=== PATIENT | female | born 1995 | race Caucasian/White ===

== ENCOUNTER 2024-01-25 13:47 | Observation (INO) | payer OTHER, SELFPAY ==
[2024-01-25] VITALS (8 sets, daily range): BP systolic 95–113; BP diastolic 48–83; PULSE 117–132; RESP 5–26; TEMP 36.6–37; O2SAT 98–100
--- NOTE | ~2024-01-25 | CT_ITS ---
EXAMINATION: CTA chest PE abdomen pel DATE: 01/25/2024 20:39 INDICATION: Nausea and tachycardia TECHNIQUE: Computed tomography angiography (CTA) of the chest was performed with 100 mL Omnipaque-350 intravenous contrast timed to evaluate the pulmonary arteries. Subsequent postcontrast images of the abdomen and pelvis are obtained. Coronal maximum intensity projection 3D-reconstructions were create d by the technologist. The dose-length product (DLP) was 1685.28 mGy-cm. Automated exposure control a nd iterative reconstruction technique were employed. COMPARISON: None. FINDINGS: CTA CHEST: There is fair opacification of the pulmonary arteries. There is moderate respiratory motio n. No central pulmonary embolus is identified. There appear to be patchy airspace opacities of the [place] ngs again, sensitivity is limited by respiratory motion. No pleural effusion or pneumothorax. No path ologically enlarged thoracic lymph nodes are identified. The heart size is normal. ABDOMEN/PELVIS CT: Cholecystectomy clips are noted. The liver, spleen, pancreas, and adrenal glands a re normal. Small cysts of the kidneys measure up to 3 mm. The appendix is normal. No pathologically e nlarged abdominal or pelvic lymph nodes are identified. No free intraperitoneal gas or evidence of mimi wel obstruction. There is liquid stool throughout much of the colon. There is a greater than normal n umber of fluid-filled, nondistended small bowel loops. IMPRESSION: 1. No central pulmonary embolus identified. Evaluation for pulmonary emboli is limited by fair opacif ication of the pulmonary arteries and moderate respiratory motion. 2. Minimal airspace opacities of the lungs which could reflect atelectasis versus mild pneumonia. 3. CT findings suggestive of enterocolitis. Reviewed, dictated and finalized at location F. TS REPORTER IMPRESSION: 1. No central pulmonary embolus identified. Evaluation for pulmonary emboli is limited by fair opacification of the pulmonary arteries and moderate respirator y motion. 2. Minimal airspace opacities of the lungs which could reflect atelectasis vers us mild pneumonia. 3. CT findings suggestive of enterocolitis.
--- NOTE | 2024-01-25 16:19 | ED.GENADULT ---
HPI - General Adult General Chief complaint: Nausea/Vomiting/Diarrhea <Aristides Guzman MD - Last Filed: 01/26/24 07:02> Stated complaint: vomiting <Aristides Guzman MD - Last Filed: 01/26/24 07:02> Time Seen by Provider: 01/25/24 15:58 <Aristides Guzman MD - Last Filed: 01/26/24 07:02> History of Present Illness HPI narrative: 28-year-old female present to the emergency department for evaluation of nausea vomiting and diarrhea. Patient reports she had onset of symptoms approximately 4:00 a.m. this morning. Patient had multiple rounds of nausea vomiting and diarrhea. Patient does complain of diffuse abdominal soreness after the vomiting. Patient denies any abdominal pain, at time of examination Patient does have prior history cholecystectomy <Aristides Guzman MD - Last Filed: 01/26/24 07:02> Related Data Home medications: Home Medications Medication Instructions Recorded Confirmed Lactaid 1 tablet PO TIDWM PRN dairy 01/26/24 01/26/24 sertraline 50 mg tablet 50 mg PO DAILY 01/26/24 01/26/24 topiramate 100 mg tablet 100 mg PO HS 01/26/24 01/26/24 ubrogepant 100 mg tablet (Ubrelvy) 100 mg PO BID PRN Migraine Headache 01/26/24 01/26/24 <Aristides Guzman MD - Last Filed: 01/26/24 07:02> Allergies/adverse reactions: Allergies Allergy/AdvReac Type Severity Reaction Status Date / Time Milk Containing Products Allergy Vomiting Verified 01/26/24 00:35 (Dairy) <Aristides Guzman MD - Last Filed: 01/26/24 07:02> Review of Systems Review of Systems: All systems reviewed & are unremarkable except as noted in HPI and below <Aristides Guzman MD - Last Filed: 01/26/24 07:02> PMFSH Past Medical History Medical History: Medical History (Updated 01/26/24 @ 05:10 by Manasa Riddle DO) Depression Migraines Morbid obesity with BMI of 40.0-44.9, adult <Aristides Guzman MD - Last Filed: 01/26/24 07:02> Surgical History Surgical History: Surgical History (Updated 01/26/24 @ 05:03 by Manasa Riddle DO) Hx of cholecystectomy (2017) <Aristides Guzman MD - Last Filed: 01/26/24 07:02> Family History Family History: Family History Mother Hypertension Morbid obesity Sudden cardiac , Onset Age: 50 She had been having heartburn symptoms and in her sleep Grandparent Diabetes mellitus Grandparent Diabetes mellitus Grandparent Colon cancer Grandparent Cerebrovascular accident <Aristides Guzman MD - Last Filed: 01/26/24 07:02> Social History Social History: Social History (Updated 01/26/24 @ 05:06 by Manasa Riddle DO) Social History: The patient lives with a roommate. She does not have any kids and is single. She is a lifelong nonsmoker. She rarely drinks alcohol and only in moderation. She denies illicit substance use. Code status: Full code Surrogate decision maker: Ed (father) Smoking status: Never smoker Alcohol intake: never Substance use: never Do You Feel Safe in your Home?: Yes Lack of Transportation: No Lack of Food: Never True Current Housing: I Have Housing Concerned About Future Housing: No Difficulty Paying Gas/Electric Bills: No Difficulty Paying for Meds: No Currently Unemployed: No Education: Bachelor's Degree Difficulty w/ Childcare or Family Care: No Spiritual care concerns: No <Aristides Guzman MD - Last Filed: 01/26/24 07:02> Exam Narrative: APPEARANCE: Well appearing, no pain, no distress, well-nourished. HEAD: normocephalic, atraumatic. EYES: PERRLA/EOMI, conjunctivae clear. NOSE: Normal no drainage EARS:TMS clear with good light reflex. THROAT: Pharynx clear, no exudate. NECK: Supple. No adenopathy, no masses. RESPIRATORY: Airway patent, respirations nonlabored. Clear to auscultation bilaterally, no rales, rhonchi, wheezing. CARDIOVASCULAR: Regular rate and rhythm without murmurs rubs or
[2024-01-25] MEDS: SODIUM CHLORIDE 0.9% IV 1,000 ML 999 ML IV CONT ×4 (16:33→22:47)
[2024-01-25] MEDS: ONDANSETRON INJ 4 MG/2 ML VIAL IV PUSH (16:34)
[2024-01-25 16:48] LABS: Basophils Percent Auto 0.1 % (0.2-1.2); Hematocrit 41.9 % (37.0-47.0); Hemoglobin 13.8 g/dL (12.0-15.0); Immature Granulocyte Absolute 0.06 K/mm3 (0.00-0.031); Immature Granulocyte Percent A 0.4 % (0-0.5); Lymphocytes Absolute Auto 0.61 K/mm3 (0.9-3.2); Mean Corpuscular HGB Conc 32.9 g/dl (32-36); Mean Corpuscular Hemoglobin 29.9 pg (26-34); Mean Corpuscular Volume 90.7 fl (80-100); Mean Platelet Volume 10.3 fl (7.4-10.4); Monocytes Absolute Auto 0.4 K/mm3 (0.1-0.6); Monocytes Percent Auto 2.8 % (2.6-8.5); Neutrophils Percent Auto 92.7 % (45.5-73.1); Platelet Count Result 317 k/mm3 (150-375); Red Blood Count 4.62 M/mm3 (4.2-5.4); Red Cell Distribution Width 12.3 % (11.5-14.5); White Blood Count 15.2 K/mm3 (4.5-10.0)
[2024-01-25 17:03] LABS: Alanine Aminotransferase 30 U/L (6-35); Albumin Level 4.6 g/dL (3.5-5.1); Alkaline Phosphatase 78 U/L (38-126); Anion Gap 14 mmol/L (8-16); Aspartate Amino Transferase 27 U/L (14-36); Bilirubin,Total 0.6 mg/dL (0.2-1.3); Blood Urea Nitrogen 13 mg/dL (7-17); Calcium 9.3 mg/dL (8.4-10.2); Carbon Dioxide 18 mmol/L (22-30); Chloride 107 mmol/L (98-107); Estimated CRCL calculation 127 ml/min; Estimated Glomerular Filt Rate > 60; Glucose 117 mg/dL (65-110); Lipase 49 U/L (23-300); Sodium 139 mmol/L (137-145)
[2024-01-25 17:04] LABS: Lactic Acid Reflex 1.3 mmol/L (0.7-2.0)
[2024-01-25 17:27] LABS: Influenza A QL RT-PCR Negative (Negative); Influenza B QL RT-PCR Negative (Negative); RSV RNA, RT-PCR Negative (Negative); SARS-CoV-2 RNA PCR Negative (Negative)
[2024-01-25 17:56] LABS: Appearance Urine Cloudy (Clear); Bacteria Urine 1+ /hpf; Bilirubin Urine Negative (Negative); Blood Urine Negative (Negative); Color Urine Yellow (Yellow); Glucose Urine UA Negative (Negative); Ketones Urine Negative (Negative); Leukocyte Esterase Ur Trace LEU/UL (Negative); Need Manual Microscopic Reviewed; Nitrate Urine Negative (Negative); Non Pathogenic Casts 0-2; Protein Urine Negative (Negative); Specific Grav Ur 1.024 (1.001-1.035); Squamous Epithelial Cell Urine Few /hpf (Few); Urobilinogen Urine 0.2 mg/dL (<2.0); WBC Urine 0-5 /hpf
[2024-01-25 17:57] LABS: Add Urine Microscopic? YES
[2024-01-25 19:07] LABS: D Dimer 1.15 ug/mL (<0.48)
[2024-01-25 20:24] LABS: Pregnancy On Board Control Positive; Urine Pregnancy Test Negative
--- NOTE | 2024-01-25 22:22 | ECG_ITS ---
Measurements Intervals [place] Rate: 128 P: 31 DC: 149 QRS: 53 QRSD: 82 T: 30 QT: 301 QTc: 440 Interpretive Statements SINUS TACHYCARDIA ABNORMAL ECG NO PREVIOUS ECG AVAILABLE FOR COMPARISON Electronically Signed On 01-26-2024 9:00:31 PRODUCT DESIGNER by Toro Raza D.O.
[2024-01-26] VITALS (11 sets, daily range): BP systolic 104–122; BP diastolic 63–83; PULSE 90–122; RESP 14–20; TEMP 36.4–36.6; O2SAT 97–100; BMI 41.8
[2024-01-26] MEDS: LACTATED RINGERS 1,000 ML 150 ML IV CONT ×4 (00:02→17:00)
--- NOTE | 2024-01-26 00:23 | ADMGEN ---
This patient, Staci Red, was admitted to [facility] Surg Room 330-02. Patient/family oriented to hospital policies and general routines including ID bracelet, bed and alarms, visiting hours, pain management, procedures, bathroom and other care routines, personal items, smoking policy, room service/diet, and visiting hours. Information on how to activate the Rapid Response Team has been discussed. Patient/Family are encouraged to report perceived risks to care and to ask questions if they do not understand what they are told or what they should do.
--- NOTE | 2024-01-26 04:12 | PM.IMHP ---
H&P: HPI History of Present Illness Date/Time: 01/26/24 04:12 Chief Complaint: Vomiting and diarrhea Narrative: 28-year-old female with past medical history of anxiety, migraines, and morbid obesity who presented to the ER via private vehicle due to nausea vomiting and diarrhea. The patient reports the symptoms started around 04:00 on the . She reports that she tends to have irritable bowel syndrome fluctuating between diarrhea and constipation. For the last week she has been having some softer stools but then have frankly watery stools until at 04:00. She reports that she had nausea that woke up from sleep in was immediately associated with diarrhea. She reports frankly watery stools numerous times today. She denies any bloody stools. She has not had any fevers or chills. She reports that her abdomen in chest her due to the amount of vomiting that she has had. She does have some petechiae to her soft palate and mild erythema to her posterior oropharynx. She denies being in around any ill contacts. 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 Her roommate has not had similar symptoms despite them eating the same meal the night before. She denies any dysuria or changes in urination. She does report that she has now feeling just generally achy in her arms chest and abdomen. She reports that her arms feel heavy and she feels fatigued. Symptoms have improved after receiving antiemetics and IV fluids in the ER. In the ER she was noted to be markedly tachycardic with heart rates into the 130s at rest and up to the 150s with activity. After IV fluid administration her heart rate is been down into the 110s. Due to her tachycardia they checked a D-dimer in the ER which was elevated. Her CTA of the chest abdomen pelvis was negative for PE. CT findings were suggestive of enterocolitis. Patient denies any recent travel or antibiotic exposure. She reports that her bilateral arms are tingly. She has been having muscle cramps. However it is not unusual for her to have muscle cramps on a somewhat frequent basis. Patient does report that she has some baseline tachycardia. She does not know what her baseline heart rate usually runs. Review of Systems Review of Systems: 12 systems were reviewed with pertinent positives and negatives per HPI. Except as documented in the HPI, all other systems were reviewed and are negative. [facility] Past Medical History Medical History (Updated 01/26/24 @ 05:10 by Manasa Riddle DO) Depression Migraines Morbid obesity with BMI of 40.0-44.9, adult Surgical History Surgical History (Updated 01/26/24 @ 05:03 by Manasa Riddle DO) Hx of cholecystectomy (2017) Family History Family History Mother Hypertension Morbid obesity Sudden cardiac , Onset Age: 50 She had been having heartburn symptoms and in her sleep Grandparent Diabetes mellitus Grandparent Diabetes mellitus Grandparent Colon cancer Grandparent Cerebrovascular accident Social History Social History (Updated 01/26/24 @ 05:06 by Manasa Riddle DO) Social History: The patient lives with a roommate. She does not have any kids and is single. She is a lifelong nonsmoker. She rarely drinks alcohol and only in moderation. She denies illicit substance use. Code status: Full code Surrogate decision maker: Ed (father) Smoking status: Never smoker Alcohol intake: never Substance use: never Do You Feel Safe in your Home?: Yes Lack of Transportation: No Lack of Food: Never True Current Housing: I Have Housing Concerned About Future Housing: No Difficulty Paying Gas/Electric Bills: No Difficulty Paying for Meds: No Currently Unemployed: No Education: Bachelor's Degree Difficulty w/ Childcare or Family Care: No Spiritual care concerns: No Meds Home Medi
[2024-01-26] MEDS: ONDANSETRON INJ 4 MG/2 ML VIAL IV PUSH (05:41)
[2024-01-26] MEDS: ACETAMINOPHEN 325 MG TABLET 650 MG PO ×2 (05:42→14:07)
[2024-01-26 06:31] LABS: Basophils Percent Auto 0.2 % (0.2-1.2); Eosinophils Percent Auto 0.1 % (0-4.4); Hematocrit 36.1 % (37.0-47.0); Hemoglobin 11.6 g/dL (12.0-15.0); Immature Granulocyte Absolute 0.02 K/mm3 (0.00-0.031); Immature Granulocyte Percent A 0.2 % (0-0.5); Lymphocytes Absolute Auto 1.48 K/mm3 (0.9-3.2); Lymphocytes Percent Auto 17.2 % (18.3-44.2); Mean Corpuscular HGB Conc 32.1 g/dl (32-36); Mean Corpuscular Hemoglobin 30.1 pg (26-34); Mean Corpuscular Volume 93.5 fl (80-100); Mean Platelet Volume 10.4 fl (7.4-10.4); Monocytes Absolute Auto 0.6 K/mm3 (0.1-0.6); Monocytes Percent Auto 7.1 % (2.6-8.5); Neutrophils Absolute Auto 6.5 K/mm3 (1.3-6.7); Neutrophils Percent Auto 75.2 % (45.5-73.1); Platelet Count Result 256 k/mm3 (150-375); Red Blood Count 3.86 M/mm3 (4.2-5.4); Red Cell Distribution Width 12.2 % (11.5-14.5); White Blood Count 8.6 K/mm3 (4.5-10.0)
[2024-01-26 06:47] LABS: Alanine Aminotransferase 23 U/L (6-35); Albumin Level 3.7 g/dL (3.5-5.1); Alkaline Phosphatase 53 U/L (38-126); Anion Gap 9 mmol/L (8-16); Aspartate Amino Transferase 25 U/L (14-36); Bilirubin,Total 0.7 mg/dL (0.2-1.3); Blood Urea Nitrogen 7 mg/dL (7-17); Calcium 7.5 mg/dL (8.4-10.2); Carbon Dioxide 19 mmol/L (22-30); Chloride 107 mmol/L (98-107); Estimated CRCL calculation 121 ml/min; Estimated Glomerular Filt Rate > 60; Glucose 108 mg/dL (65-110); Magnesium 1.6 mg/dL (1.6-2.3); Phosphorus 2.6 mg/dL (2.5-4.5); Potassium 3.3 mmol/L (3.4-5.0); Sodium 135 mmol/L (137-145)
[2024-01-26] MEDS: FAMOTIDINE 20 MG/2 ML VIAL IV PUSH ×2 (08:46→20:23)
[2024-01-26] MEDS: ENOXAPARIN 40 MG/0.4 ML SYRINGE SUB-Q (08:47)
[2024-01-26] MEDS: SERTRALINE HCL 50 MG TABLET PO (08:47)
[2024-01-26] MEDS: POTASSIUM CHLORIDE 20 MEQ PACKET (FOR LIQUID) 40 MEQ PO (09:15)
[2024-01-26] MEDS: POTASSIUM/PHOSPHORUS/SODIUM 1.5 GM PACKET 1 PACKET PO ×2 (09:15→17:00)
[2024-01-26 10:37] LABS: Appearance Urine Clear (Clear); Bilirubin Urine Negative (Negative); Blood Urine Negative (Negative); Color Urine Yellow (Yellow); Glucose Urine UA Negative (Negative); Ketones Urine Negative (Negative); Leukocyte Esterase Ur Negative LEU/UL (Negative); Nitrate Urine Negative (Negative); Protein Urine Negative (Negative); Specific Grav Ur 1.006 (1.001-1.035); Urobilinogen Urine 0.2 mg/dL (<2.0)
[2024-01-26 10:42] LABS: Add Urine Microscopic? NO
[2024-01-26 11:25] LABS: IFOB Positive Control Positive; Immunochemical Fecal Occult Bl Positive (N)
[2024-01-26 11:32] LABS: Toxigenic C. Diff NEGATIVE (NEGATIVE)
--- NOTE | 2024-01-26 18:23 | PM.IMPN ---
Progress Note: A&P Assessment and Plan (1) Nausea and vomiting: Qualifiers: Vomiting type: unspecified Qualified Code(s): R11.2 - Nausea with vomiting, unspecified Code(s): R11.2 - Nausea with vomiting, unspecified Status: Acute (2) Tachycardia: Code(s): R00.0 - Tachycardia, unspecified Status: Acute (3) Gastroenteritis: Code(s): K52.9 - Noninfective gastroenteritis and colitis, unspecified Status: Acute (4) Dehydration: Code(s): E86.0 - Dehydration Status: Acute Plan Place patient under observation status She received aggressive IV hydration with 4 L of IV normal saline in the ED Patient started on IV hydration with potassium supplementation at 75 cc/hour on the floor Oral potassium and phosphate supplementation ordered Strict input and output monitoring Monitor labs and electrolytes closely Patient leukocytosis has resolved Patient likely has viral gastroenteritis which is slowly improving She needs to establish with the GI as an outpatient upon discharge Spoke with patient and her father at the bedside ? Patient seen and examined at bedside during my morning rounds ? Collaborated with patient's nurse at the bedside in detail and addressed all concerns ? Labs, electrolytes, radiology, investigations and test results reviewed ? Consult/Nursing/Ancilliary notes on the chart reviewed and appreciated ? Spoke with patient/family at the bedside and answered all the questions that they had Repeat labs in a.m. Electrolyte replacement as per protocol. Patient will be monitored very closely on the floor. Further recommendations as per the hospital course. Time Spent With Patient Time with patient: 15 - 25 minutes Subjective Date/time seen: 01/26/24 18:23 Interval history: Patient seen and evaluated bedside today. Abdominal pain is slowly improving. Still feels weak and tired Review of Systems Review of Systems: 12 systems were reviewed with pertinent positives and negatives per HPI. Except as documented in the HPI, all other systems were reviewed and are negative. All systems reviewed & are unremarkable except as noted in HPI and below Exam Narrative: PHYSICAL EXAMINATION: Vital signs: Please see the chart General physical exam: Morbidly obese female, ambulating at bedside, pleasant and with exam, feels tired and fatigued Head/eyes: Atraumatic, EOMI, PERRLA ENT: Moist mucous membranes, nasal passages clear Neck: Supple, full range of motion, trachea midline CVS: S1 + S2, regular rate and rhythm, no murmurs Respiratory: Bilaterally fair air entry in both lung joseph, mild B/L crackles, symmetric chest expansion, no distress Abdomen: Soft, + mild abdominal tenderness on deep palpation, bowel sounds +ve, no organomegaly Extremities: No clubbing, no cyanosis, no edema, no calf tenderness Musculoskeletal: Moves all, adequate range of motion, no muscle spasms Skin: Warm, dry, no jaundice, no cyanosis Neurological: Awake, alert, oriented x 3, cranial nerves II-XII intact, no focal neurological deficits Psychiatric: Normal mood, non suicidal Objective Data Vital Signs Vital Signs: Vital Signs - 24 hr 01/25/24 19:07 01/25/24 20:56 01/25/24 22:43 Temperature 37.0 C Pulse Rate 121 H 132 H 129 H Respiratory Rate 13 16 16 Blood Pressure 105/73 107/58 L 100/83 Pulse Oximetry 99 100 99 Oxygen Delivery 01/26/24 00:04 01/26/24 00:30 01/26/24 03:08 Temperature 36.6 C Pulse Rate 117 H 122 H Respiratory Rate 15 20 Blood Pressure 110/72 110/75 Pulse Oximetry 99 100 Oxygen Delivery Room Air 01/26/24 04:00 01/26/24 06:30 01/26/24 09:31 Temperature 36.6 C Pulse Rate 119 H 116 H Respiratory Rate 20 Blood Pressure 122/63 Pulse Oximetry 98 97 Oxygen Delivery Room Air 01/26/24 08:50 01/26/24 08:50 01/26/24 12:00 Temperature Pulse Rate 114 H 122 H Respiratory Rate Blood Pressure Pulse Oximetry Oxyg
[2024-01-26] MEDS: KCL 20 MEQ/D5/0.45% SOD CHL 1,000 ML 75 ML IV CONT (20:23)
[2024-01-26] MEDS: TOPIRAMATE 100 MG TABLET PO (20:23)
[2024-01-27] VITALS: PULSE 89
[2024-01-27 04:00] VITALS: PULSE 95
[2024-01-27 06:00] VITALS: BP 103/70; PULSE 89; RESP 18; TEMP 36.4; O2SAT 97
[2024-01-27 06:07] LABS: Basophils Percent Auto 0.6 % (0.2-1.2); Eosinophils Absolute Auto 0.1 K/mm3 (0-0.3); Eosinophils Percent Auto 1.2 % (0-4.4); Hematocrit 36.7 % (37.0-47.0); Hemoglobin 11.3 g/dL (12.0-15.0); Immature Granulocyte Absolute 0.01 K/mm3 (0.00-0.031); Immature Granulocyte Percent A 0.2 % (0-0.5); Lymphocytes Absolute Auto 2.45 K/mm3 (0.9-3.2); Lymphocytes Percent Auto 37.8 % (18.3-44.2); Mean Corpuscular HGB Conc 30.8 g/dl (32-36); Mean Corpuscular Hemoglobin 29.1 pg (26-34); Mean Corpuscular Volume 94.6 fl (80-100); Mean Platelet Volume 10.5 fl (7.4-10.4); Monocytes Absolute Auto 0.7 K/mm3 (0.1-0.6); Monocytes Percent Auto 10.3 % (2.6-8.5); Neutrophils Absolute Auto 3.2 K/mm3 (1.3-6.7); Neutrophils Percent Auto 49.9 % (45.5-73.1); Platelet Count Result 234 k/mm3 (150-375); Red Blood Count 3.88 M/mm3 (4.2-5.4); White Blood Count 6.5 K/mm3 (4.5-10.0)
[2024-01-27 06:17] LABS: Anion Gap 6 mmol/L (8-16); Blood Urea Nitrogen 3 mg/dL (7-17); Calcium 8.6 mg/dL (8.4-10.2); Carbon Dioxide 19 mmol/L (22-30); Chloride 113 mmol/L (98-107); Estimated CRCL calculation 121 ml/min; Estimated Glomerular Filt Rate > 60; Glucose 104 mg/dL (65-110); Magnesium 1.9 mg/dL (1.6-2.3); Phosphorus 2.2 mg/dL (2.5-4.5); Potassium 3.7 mmol/L (3.4-5.0); Sodium 138 mmol/L (137-145)
[2024-01-27] MEDS: ENOXAPARIN 40 MG/0.4 ML SYRINGE SUB-Q (08:08)
[2024-01-27] MEDS: FAMOTIDINE 20 MG/2 ML VIAL IV PUSH (08:09)
[2024-01-27] MEDS: POTASSIUM/PHOSPHORUS/SODIUM 1.5 GM PACKET 1 PACKET PO (08:09)
[2024-01-27] MEDS: SERTRALINE HCL 50 MG TABLET PO (08:09)
[2024-01-27 08:10] VITALS: PULSE 93
[2024-01-27] MEDS: KCL 20 MEQ/D5/0.45% SOD CHL 1,000 ML 75 ML IV CONT (08:11)
[2024-01-27] MEDS: POTASSIUM PHOS,M-BASIC-D-BASIC 40 MMOL in SODIUM CHLORIDE 0.9% IV 250 ML 43 MMOL IVPB (09:55)
[2024-01-27] MEDS: SODIUM CHLORIDE 0.9% IV 1,000 ML 100 ML (10:36)
--- NOTE | 2024-01-27 12:27 | PM.DS ---
DS: Admitting Diagnosis Discharge Date 01/27/2024: Admitting Diagnosis (1) Nausea and vomiting: ?Qualifiers: ?Vomiting type:?unspecified? Qualified Code(s):?R11.2 - Nausea with vomiting, unspecified ?Code(s): R11.2 - Nausea with vomiting, unspecified ?Status:?Acute (2) Tachycardia: ?Code(s): R00.0 - Tachycardia, unspecified ?Status:?Acute (3) Gastroenteritis: ?Code(s): K52.9 - Noninfective gastroenteritis and colitis, unspecified ?Status:?Acute (4) Dehydration: ?Code(s): E86.0 - Dehydration ?Status:?Acute DS: Discharge Diagnosis Discharge Diagnosis (1) Nausea and vomiting: Qualifiers: Vomiting type: unspecified Qualified Code(s): R11.2 - Nausea with vomiting, unspecified Code(s): R11.2 - Nausea with vomiting, unspecified Status: Acute (2) Tachycardia: Code(s): R00.0 - Tachycardia, unspecified Status: Acute (3) Gastroenteritis: Code(s): K52.9 - Noninfective gastroenteritis and colitis, unspecified Status: Acute (4) Dehydration: Code(s): E86.0 - Dehydration Status: Acute (5) Irritable bowel syndrome: Code(s): K58.9 - Irritable bowel syndrome without diarrhea Status: Acute (6) Hypokalemia: Code(s): E87.6 - Hypokalemia Status: Acute DS: Summary Hospital Course Reason for hospitalization: Patient admitted with vomiting and diarrhea Hospital Course: H&P: HPI History of Present Illness Date/Time: 01/26/24? 04:12 Chief Complaint: Vomiting and diarrhea Narrative: 28-year-old female with past medical history of anxiety, migraines, and morbid obesity who presented to the ER via private vehicle due to nausea vomiting and diarrhea.? The patient reports the symptoms started around 04:00 on the .? She reports that she tends to have irritable bowel syndrome fluctuating between diarrhea and constipation.? For the last week she has been having some softer stools but then have frankly watery stools until at 04:00.? She reports that she had nausea that woke up from sleep in was immediately associated with diarrhea.? She reports frankly watery stools numerous times today.? She denies any bloody stools.? She has not had any fevers or chills.? She reports that her abdomen in chest her due to the amount of vomiting that she has had.? She does have some petechiae to her soft palate and mild erythema to her posterior oropharynx.? She denies being in around any ill contacts.? 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 Her roommate has not had similar symptoms despite them eating the same meal the night before.? She denies any dysuria or changes in urination.? She does report that she has now feeling just generally achy in her arms chest and abdomen.? She reports that her arms feel heavy and she feels fatigued.? Symptoms have improved after receiving antiemetics and IV fluids in the ER.? In the ER she was noted to be markedly tachycardic with heart rates into the 130s at rest and up to the 150s with activity.? After IV fluid administration her heart rate is been down into the 110s.? Due to her tachycardia they checked a D-dimer in the ER which was elevated.? Her CTA of the chest abdomen pelvis was negative for PE.? CT findings were suggestive of enterocolitis.? Patient denies any recent travel or antibiotic exposure.? She reports that her bilateral arms are tingly.? She has been having muscle cramps.? However it is not unusual for her to have muscle cramps on a somewhat frequent basis.? Patient does report that she has some baseline tachycardia.? She does not know what her baseline heart rate usually runs. 01/26/2024: Place patient under observation status She received aggressive IV hydration with 4 L of IV normal saline in the ED Patient started on IV hydration with potassium supplementation at 75 cc/hour on the floor Oral potassium and phosphate supplem
== END 2024-01-27 14:44 | disposition home or self-care (01) ==
LOC: ANHED 22:57 → ANH3MEDSUR 23:50
PROVIDERS: Emergency Medicine; Admitting Provider Internal Medicine; Emergency Provider Emergency Medicine; Visit Provider Family Medicine
DX: K52.9 Noninfective gastroenteritis and colitis, unspecified (principal); R00.0 Tachycardia, unspecified; E86.0 Dehydration; F41.9 Anxiety disorder, unspecified; F32.A Depression, unspecified; Z20.822 Contact with and (suspected) exposure to COVID-19; E78.6 Lipoprotein deficiency; E66.01 Morbid (severe) obesity due to excess calories; Z68.41 Body mass index [BMI] 40.0-44.9, adult; Z79.899 Other long term (current) drug therapy
CPT/HCPCS: 36415; 71275; 74177; 80048; 80053; 81001; 81003; 81025; 82274; 83605; 83690; 83735; 84100; 85025; 85380; 87045; 87427; 87449; 87493; 87637; 93005; 96361; 96365; 96366; 96368; 96372; 96374; 96375; 96376; 99285; A9270; G0378; J1650; J2405; J3480; J7030; J7050; J7120; Q9967